=== PATIENT | male | born 1990 | race Caucasian/White ===

== ENCOUNTER 2022-03-14 23:11 | Emergency (ER) | payer OTHER | END 2022-03-15 00:40 | disposition home or self-care (01) | LOC: MERGE 23:11 → FB.ED 23:11 | DX: S61.213A Laceration without foreign body of left middle finger without damage to nail, initial encounter (principal); W26.8XXA Contact with other sharp object(s), not elsewhere classified, initial encounter | CPT/HCPCS: 12001; 99282 ==